=== PATIENT | female | born 2000 | race African-American/Black ===

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

== ENCOUNTER 2023-04-07 17:12 | Emergency (ER) | payer MEDICAID ==
[~2023-04-07] VITALS: Ht 149.9 cm; Wt 102.4 kg
[2023-04-07] MEDS ORDERED: CYCL-837 PO (21:00)
[2023-04-07] MEDS ORDERED: ZOFR4T PO (21:00)
[2023-04-07] MEDS ORDERED: IBUP-1456 PO (21:00)
[2023-04-07] MEDS ORDERED: ONDANSETRON ODT 4 MG TAB PO ONE (21:00)
[2023-04-07] MEDS ORDERED: ACETAMINOPHEN 325 MG TAB PO ONE (21:00)
[2023-04-07 22:00] VITALS: BP 122/69; PULSE 118; RESP 18; TEMP 98.1; O2SAT 95
== END 2023-04-07 22:18 | disposition home or self-care (01) ==
LOC: ER 17:12
DX: G44.209 Tension-type headache, unspecified, not intractable (principal); M54.2 Cervicalgia
CPT/HCPCS: 70450; 72125